=== PATIENT | female | born 1965 | race Hispanic/Latino ===

== ENCOUNTER 2018-03-09 10:39 | Emergency (ER) | payer MEDICARE ==
[2018-03-09 10:56] VITALS: BP 104/71
--- NOTE | 2018-03-09 11:49 | XRay Report ---
FINAL REPORT EXAM: XR KNEE 3V RT HISTORY: Pain, no trauma TECHNIQUE: AP, oblique and lateral radiographs of the right knee. PRIORS: None. FINDINGS: No fracture. No dislocation. Normal mineralization. No soft tissue abnormality. No joint effusion. No degenerative change. IMPRESSION: Normal right knee.
--- NOTE | 2018-03-09 13:43 | Emergency Department Report ---
HPI - General Chief Complaint: Extremity Problem,Nontraumatic Time Seen by Provider: 03/09/18 13:34 - HPI HPI: 52-year-old female presents to the emergency department with a complaint of right knee pain. The pain has been going on for the past month but yesterday she says that the knee buckled and gave way and since then she was having increased pain. She has been having to use her father's cane to assist with her ambulation. She denies any trauma. She has a past medical history of chronic back pains. She denies any obvious swelling, skin color change. She has not seen anyone regarding her symptoms prior to presentation. ED Past Medical Hx - Past Medical History Previous Medical History?: Yes Additional medical history: Chronic back pain. - Surgical History Past Surgical History?: Yes Additional Surgical History: 4 back surgeries. - Social History Smoking Status: Current Every Day Smoker Substance Use Type: None ED Review of Systems ROS: Stated complaint: LEG/KNEE PAIN Other details as noted in HPI Comment: All other systems reviewed and negative Constitutional: denies: chills, fever Eyes: denies: eye pain, eye discharge, vision change ENT: denies: ear pain, throat pain Respiratory: denies: cough, shortness of breath, wheezing Cardiovascular: denies: chest pain, palpitations Gastrointestinal: denies: abdominal pain, nausea, diarrhea Genitourinary: denies: urgency, dysuria, discharge Musculoskeletal: arthralgia. denies: joint swelling Skin: denies: rash, lesions Neurological: denies: headache, weakness, paresthesias Physical Exam - Physical Exam Vital Signs: Vital Signs 03/09/18 10:53 Temperature 98.8 F Pulse Rate 79 Respiratory 16 Rate Blood Pressure 104/71 O2 Sat by Pulse 94 Oximetry Physical Exam: GENERAL: The patient is well-developed well-nourished. HENT: Normocephalic. Atraumatic. Patient has moist mucous membranes. EYES: Extraocular motions are intact. NECK: Supple. Trachea is midline. CHEST/LUNGS: Clear to auscultation. There is no respiratory distress noted. HEART/CARDIOVASCULAR: Regular. There is no tachycardia. There is no murmur. ABDOMEN: Abdomen is soft, nontender. Patient has normal bowel sounds. There is no abdominal distention. SKIN: Skin is warm and dry. There is no appreciable swelling to the affected right knee. NEURO: The patient is awake, alert, and oriented. The patient is cooperative. The patient has no focal neurologic deficits. The patient has normal speech. MUSCULOSKELETAL: Negative anterior and posterior right drawer test. No laxity to valgus or varus stress of the affected right knee. No evidence of acute injury. ED Course Vital Signs 03/09/18 10:53 Temperature 98.8 F Pulse Rate 79 Respiratory 16 Rate Blood Pressure 104/71 O2 Sat by Pulse 94 Oximetry ED Medical Decision Making - Radiology Data Radiology results: image reviewed interpreted by me: X-ray of the right knee does not show any fracture, his location or any acute process. - Medical Decision Making I checked the [employer] prescription monitoring system and the patient gets monthly prescriptions for OxyContin 20 mg in a 30 day supply, as well as alprazolam. The patient will be receiving a Toradol shot but will not be receiving a prescription for home for any other pain medication. X-ray of the right knee does not show any fracture, dislocation or any other acute process. There are no signs of any instability of the knee. There is no obvious joint swelling or effusion, skin color change. She has been placed in a knee immobilizer and given crutches and she will get a referral for 2 different orthopedic groups. - Differential Diagnosis fracture, dislocation, osteoarthritis, tendinitis Critical Care Time: No Critical care attestation.: If time is entered above; I have spent that time in minutes in the direct care of this critically ill patient, excluding procedure time. ED Disposition Clinical Impression: Right knee pain Qualifiers: Chronicity: unspecified Qualified Code(s): M25.561 - Pain in right knee Disposition: - TO HOME OR SELFCARE Is pt being admited?: No Condition: Stable Instructions: Arthralgia (ED) Additional Instructions: I have given you to different referrals for local orthopedic groups. You do not necessarily need to see one of these 2 groups but you do need to follow-up with an orthopedist in the near future regarding your knee pains. Return to the emergency Department with any worsening of your symptoms or any acute distress. Referrals: DALJIT CHUN MD [Primary Care Provider] - 3-5 Days OBEY BARNES MD [Staff Physician] - 2-3 Days [facility] [Provider Group] - 2-3 Days Time of Disposition: 13:45
[2018-03-09] MEDS ORDERED: TORADOL IM ONE (13:45)
== END 2018-03-09 14:22 | disposition home or self-care (01) ==
LOC: ED 10:39
DX: M25.561 Pain in right knee (principal); G89.29 Other chronic pain; M54.9 Dorsalgia, unspecified; F17.200 Nicotine dependence, unspecified, uncomplicated
CPT/HCPCS: 29505; 73562; 96372; 99283; J1885